=== PATIENT | male | born 1980 | race Two or more races ===

== ENCOUNTER 2019-04-02 11:20 | Inpatient (IN) | payer OTHER ==
[~2019-04-02] VITALS: Ht 172.7 cm; Wt 60.7 kg
--- NOTE | 2019-04-02 11:43 | NUR ---
RM ALONSO FIRE FROM [facility]. PT TRANSFERED DUE TO SINUSITIS X2 YEARS RESULTING IN "SOME KIND OF BUG" AFFECTING THE BONES IN HIS SINUS. COMPLETE BLOCK TO LEFT SIDE. RESPIRATIONS EVEN AND UNLABORED ON RA. IV ESTABLISHED AT [facility]. SIDE RAILS UP, CALL LIGHT IN REACH. PT CALM AND SPEAKING PLEASANTLY WITH STAFF.
--- NOTE | 2019-04-02 12:17 | NUR ---
DOZING ON BED W/ SIDE RAILS UP; EASILY AWAKENED. STATES HE DIDN'T GET MUCH SLEEP LAST NOC DUE TO HEAD PAIN (OCCIPITAL TO LT TEMPORAL AREA). TYLENOL LAST NOC FOR PAIN. CURRENTLY PAIN FREE. A&OX4, RESP EVEN & UNLABORED, SPEECH CLEAR, SKIN WNL. DENIES N/V. HAS BEEN WEARING SUNGLASSES. IV 20G RT FA; SITE PATENT, NS INFUSING AT TKO.
[2019-04-02] MEDS ORDERED: SODIUM CHLORIDE FLUSH 10ML SYR IVF ONE (12:30)
[2019-04-02 12:44] LABS: BASOPHILS # (AUTO) 0.02 x10^3/uL (0-0.1); BASOPHILS % (AUTO) 0 % (0-1); EOSINOPHILS % (AUTO) 0 % (1-7); LYMPHOCYTES # (AUTO) 0.75 x10^3/uL (1-3.4); LYMPHOCYTES % (AUTO) 5 % (22-44); MD NO; MEAN CORPUSCULAR HEMOGLOBIN 30.2 pg (27.5-34.5); MEAN CORPUSCULAR HGB CONC 33.7 g/dL (33.2-36.2); MEAN CORPUSCULAR VOLUME 89.4 fL (81-97); MEAN PLATELET VOLUME 7.6 fL (7.4-10.4); MONOCYTES # (AUTO) 0.36 x10^3/uL (0.2-0.8); MONOCYTES % (AUTO) 3 % (2-9); NEUTROPHILS % (AUTO) 92 % (42-75); PLATELET COUNT 279 x10^3/uL (130-400); RED CELL DISTRIBUTION WIDTH 13.4 % (9.4-14.8)
[2019-04-02 12:52] LABS: ALBUMIN 3.4 g/dL (3.4-5.0); ANION GAP 5 mmol/L (5-15); CALCIUM 8.2 mg/dL (8.5-10.1); CHLORIDE 108 mmol/L (98-107); CREATININE 0.68 mg/dL (0.7-1.3)
--- NOTE | 2019-04-02 13:42 | NUR ---
Pt ambulates well to bathroom and back in bed, NAD noted at this time. Respirations even and unlabored saturating well on RA. Side rail up, call light in reach. Dr Bolton admitting at bedside for assessment.
--- NOTE | 2019-04-02 13:43 | NUR ---
DR TREVIZO BS
--- NOTE | 2019-04-02 14:25 | NUR ---
TO XR PER WC
[2019-04-02 14:29] LABS: ALBUMIN 3.6 g/dL (3.4-5.0); BILIRUBIN, DIRECT 0.3 mg/dL (0.1-0.2)
[2019-04-02 14:35] LABS: BILIRUBIN,INDIRECT 0.9 mg/dL (0.0-2.0); BILIRUBIN,TOTAL 1.2 mg/dL (0.2-1.0); C-REACTIVE PROTEIN, QUANT 3.3 mg/dL (0.02-0.49); TOTAL PROTEIN 7.6 g/dL (6.4-8.2)
[2019-04-02] MEDS ORDERED: GADOBUTROL 7.5 MMOL/7.5 ML PFS ONE (15:02)
[2019-04-02 15:08] LABS: HCT (SEDRATE) 44.7 % (39.2-51.8)
[2019-04-02] MEDS ORDERED: SODIUM CHLORIDE FLUSH 10ML SYR IVF PRN (16:00)
[2019-04-02] MEDS ORDERED: PIPERACILLIN/TAZO/PMX 3.375GM 50 ML ONE (16:17)
[2019-04-02] MEDS ORDERED: ACETAMINOPHEN 325 MG TABLET PO PRN (16:30)
[2019-04-02] MEDS ORDERED: ONDANSETRON ODT 4 MG PO PRN (16:30)
[2019-04-02] MEDS ORDERED: ONDANSETRON 2MG/ML, 2ML IVPush PRN (16:30)
[2019-04-02] MEDS: SODIUM CHLORIDE 0.9% 1,000 ML IV SCH (16:41)
[2019-04-02] MEDS: PIPERACILLIN/TAZO/PMX 3.375GM 50 ML IV SCH ×2 (16:41→22:59)
--- NOTE | 2019-04-02 17:29 | NUR ---
PT SLEEPING, RESP EVEN & UNLABORED, SIDE RAILS UP X2, CALL LIGHT W/IN REACH, PT'S MOM IN ROOM. ZOSYN INFUSED. NS INFUSING AT 100ML/HR VIA DIAL-A-FLOW.
[2019-04-02] MEDS ORDERED: ACETAMINOPHEN 325 MG TABLET ONE (17:36)
--- NOTE | 2019-04-02 18:06 | NUR ---
REPORT TO GLADYS NOGUEIRA FOR ROOM [id number]
[2019-04-02 18:40] VITALS: BP 136/74
[2019-04-02] MEDS: IBUPROFEN 600 MG TABLET PO PRN (21:36)
[2019-04-03 00:33] VITALS: BP 130/71
[2019-04-03 05:31] LABS: MEAN CORPUSCULAR HEMOGLOBIN 29.5 pg (27.5-34.5); MEAN CORPUSCULAR HGB CONC 33.7 g/dL (33.2-36.2); MEAN CORPUSCULAR VOLUME 87.7 fL (81-97); MEAN PLATELET VOLUME 7.4 fL (7.4-10.4); PLATELET COUNT 299 x10^3/uL (130-400); RED CELL DISTRIBUTION WIDTH 14.1 % (9.4-14.8)
[2019-04-03 05:44] LABS: ANION GAP 7 mmol/L (5-15); CALCIUM 8.7 mg/dL (8.5-10.1); CHLORIDE 108 mmol/L (98-107)
[2019-04-03] MEDS: SODIUM CHLORIDE 0.9% 1,000 ML IV SCH ×2 (05:44→17:00)
[2019-04-03 05:46] LABS: CREATININE 0.82 mg/dL (0.7-1.3)
[2019-04-03] MEDS: PIPERACILLIN/TAZO/PMX 3.375GM 50 ML IV SCH ×3 (05:54→16:30)
[2019-04-03 06:34] LABS: BASOPHILS # (AUTO) 0.04 x10^3/uL (0-0.1); BASOPHILS % (AUTO) 0 % (0-1); EOSINOPHILS # (AUTO) 0.02 x10^3/uL (0-0.4); EOSINOPHILS % (AUTO) 0 % (1-7); LYMPHOCYTES # (AUTO) 1.57 x10^3/uL (1-3.4); LYMPHOCYTES % (AUTO) 10 % (22-44); MD SCAN; MONOCYTES # (AUTO) 1.05 x10^3/uL (0.2-0.8); MONOCYTES % (AUTO) 7 % (2-9); NEUTROPHILS # (AUTO) 12.46 x10^3/uL (1.8-6.8); NEUTROPHILS % (AUTO) 82 % (42-75)
[2019-04-03 07:35] VITALS: BP 145/95
[2019-04-03] MEDS ORDERED: SODIUM CHLORIDE 0.9% 1,000 ML IV SCH (09:00)
[2019-04-03] MEDS: HYDROcodone/APAP 5/325 TABLET PO PRN ×3 (09:24→17:31)
[2019-04-03] MEDS ORDERED: CEFD300C37 PO (10:45)
[2019-04-03] MEDS ORDERED: PRED20TA PO (10:45)
[2019-04-03 14:32] VITALS: BP 128/79
[2019-04-03 17:30] VITALS: BP 126/68
[2019-04-03] MEDS: IBUPROFEN 600 MG TABLET PO PRN (17:32)
== END 2019-04-03 18:00 | disposition home or self-care (01) | DRG 155 ==
LOC: ED 12:33 → EDIP 16:37 → 4NOR 18:27
PROVIDERS: ADMIT Internal Medicine; ATTEND Internal Medicine
DX: J34.1 Cyst and mucocele of nose and nasal sinus (principal); M86.18 Other acute osteomyelitis, other site; F12.90 Cannabis use, unspecified, uncomplicated; F17.210 Nicotine dependence, cigarettes, uncomplicated; H05.20 Unspecified exophthalmos; J01.10 Acute frontal sinusitis, unspecified; J32.0 Chronic maxillary sinusitis; J32.1 Chronic frontal sinusitis; J32.2 Chronic ethmoidal sinusitis; H53.8 Other visual disturbances
CPT/HCPCS: 36415; 70200; 70486; 70553; 80048; 80076; 82040; 85025; 85651; 86140; 87040; 87806; 99285; A9585; G0378; J2543; G0475; J7030